=== PATIENT | female | born 1970 | race African-American/Black ===

== ENCOUNTER 2025-08-30 07:57 | Outpatient (AMB) | payer MEDICARE, MEDICAID, SELFPAY ==
--- NOTE | 2025-08-30 07:59 | A.OFFPC_ITS ---
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 Accompanied by: Self / Same As Patient Allergies No Known Allergies Allergy (Verified 08/30/25 08:04) Medication List - Last Reconciled 08/30/25 by Clair Wilson MD apixaban (Eliquis) 2.5 mg PO BID atorvastatin 20 mg PO DAILY bupropion HCl SR 200 mg PO QAM hydroxyzine HCl 10 mg PO BID PRN multivitamin 1 tab PO DAILY prazosin 1 mg PO BEDTIME rizatriptan mg PO Tobacco use date assessed: 08/30/25 Dental Screening Dental Screen Date: 08/30/25 Did you have a dental visit in the last 12 months?: No Did you have a dental problem in the last 6 months where you did not have access to dental care?: No HPI HPI Comments History of Present Illness Details The patient is a 55-year-old female presenting to [facility] and to evaluate new complaints of left-sided back/hip pain and right hand weakness. Obstructive Sleep Apnea: The patient is using a new CPAP machine for sleep apnea and reports compliance. Since using the machine, she has experienced significantly more energy and fewer headaches. She notes feeling a difference on days she is unable to use the device. Her previous provider did not refer her to a sleep clinic after a visit to document compliance. Left Low Back Pain with Sciatica: The patient reports constant, daily pain on her left side for an unspecified but prolonged duration. The pain is located in the left lower back and buttock area, radiating down the leg. She sometimes feels a sharp, burning sensation down the left leg. She uses a heating pad every night for relief. Right Hand Pain and Weakness: The patient complains of difficulty making a full fist with her right hand, which is her dominant hand. This is associated with stiffness, which is worse upon waking in the morning and takes a while to loosen up, sometimes with the help of hot water. She was told she would likely develop arthritis after a hand surgery several years ago. Recurrent Pulmonary Embolism: The patient has a history of recurrent pulmonary embolism and is on Eliquis 2.5 mg twice a day. Mental Health History: The patient takes bupropion for depression, and the dose was previously reduced from 450 mg to 200 mg as the higher dose was too much for her. She takes hydroxyzine 10 mg as needed for anxiety and prazosin 1 mg at night for PTSD and sleep. Migraine: The patient has a history of migraines and is prescribed rizatriptan. She reports not having to use the medication as much recently. She has an upcoming appointment with [facility] neurology. Impaired fasting glucose- due for repeat a1c Anemia- due for iron studies Medical History: - Obstructive sleep apnea, managed with CPAP - Recurrent pulmonary embolism, on chron ic anticoagulation - Hyperlipidemia - Depression - Anxiety - Post-traumatic stress disorder (PTSD) - Migraines - Arthritis Medications: - Eliquis (apixaban) 2.5 mg twice a day for recurrent PE - Atorvastatin 20 mg for hyperlipidemia - Bupropion 200 mg for depression - Hydroxyzine 10 mg twice a day as neede d for anxiety - Prazosin 1 mg at night for PTSD and sl eep - Rizatriptan for migraines, used as nee ded - Multivitamin Social History: - Housing: Recently moved - Family Status: Reports her grandson elie long lives eight minutes away. - Functional Status: Reports having more energy since starting CPAP therapy. [facility] Medical History (Updated 08/30/25 @ 12:23 by Clair Wilson MD) Vitamin D deficiency Right hand pain Lower back pain Left hip pain Impaired fasting glucose Hyperlipidemia, unspecified Iron deficiency anemia Migraines MARI (obstructive sleep apnea) Depression with anxiety Pulmonary embolism Surgical History (Updated 08/30/25 @ 07:50 by Clair Wilson MD) H/O hand surgery History of colonoscopy (~04/07/24) Family History (Updated 08/30/25 @ 07:53 by Clair Wilson MD) Other Diabetes mellitus Primary hypertension Social History Housing: Apartment Patient Tobacco Use Status: Never used Tobacco e-Cigarette/Vaping Use: Never Used service: No Current occupational status: disabled Questionnaire PHQ-9 Over the last 2 weeks, how often have you been bothered by any of the following problems? 1. Little interest or pleasure in doing things: not at all 2. Feeling down, depressed, or hopeless: not at all 3. Trouble falling or staying asleep, or sleeping too much: not at all 4. Feeling tired or having little energy: several days 5. Poor appetite or overeating: several days 6. Feeling bad about yourself - or that you are a failure or have let yourself or your family down: not at all 7. Trouble concentrating on things, such as reading the newspaper or watching television: several days 8. Moving or speaking so slowly that other people could have noticed. Or the opposite - being so fidgety or restless that you have been moving around a lot more than usual: not at all 9. Thoughts that you would be better off or of hurting yourself in some way: not at all Total score: 3 Depression Screening Interpretation: Negative Depression Screening Done: Yes 14689 - PHQ-9 Billing: Yes Source: Developed by Drs. Dago Wheeler, Michelle Archuleta, Darius Lucas and colleagues, with an educational earl from [employer]. AUDIT C Alcohol Use Questionnaire (AUDIT-C) 1. How often do you have a drink containing alcohol?: Monthly or less 2. How many drinks containing alcohol do you have on a typical day when you are drinking?: 1 or 2 3. How often do you have six or more drinks on one occasion?: Never Total Score: 1 Review of Systems Narrative Review of Systems - General: Reports improved energy levels. - Neurological: Reports headaches have improved and are less frequent. - Musculoskeletal: Reports constant, daily pain on the left side, starting from the lower back/buttock area and radiating down the leg, sometimes with a sharp, burning quality. - Musculoskeletal: Reports difficulty making a full fist with the right hand, with associated morning stiffness that improves with time and warm water. Physical exam (Primary Care) Vital Signs: Last Vital Signs Temp 96.9 F 08/30/25 08:02 Pulse 69 08/30/25 08:02 Resp 16 08/30/25 08:02 BP 102/62 08/30/25 08:02 Pulse Ox 96 08/30/25 08:02 Oxygen Delivery Method Room Air 08/30/25 08:02 BMI result Body Mass Index 31.2 Tobacco/Smoking Status: Tobacco use Status Tobacco use date assessed 08/30/25 08/30/25 08:08 Patient Tobacco Use Status Never used Tobacco 08/30/25 08:08 e-Cigarette/Vaping Use Never Used 08/30/25 08:08 PHQ-9: PHQ-9 Score PHQ-9: Total score 3 08/30/25 12:23 Depression Screening Interpretation: Negative Narrative Physical Exam - Cardiovascular: Regular rate and rhythm. A soft murmur was auscultated - Respiratory: Lungs are clear to auscultation bilaterally. - Abdomen: Soft, non-tender to palpation, +BS - Extremities: No swelling in the legs. - Musculoskeletal: Tenderness to palpation over the left paraspinal muscles. 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 Crepitus noted in both knees Coding Level of Care Code Est Pt Level 4 (83694) Complex EM visit Add On G2211 Diagnoses MARI (obstructive sleep apnea) G47.33 Hyperlipidemia, unspecified hyperlipidemia type E78.5 Hyperlipidemia type: unspecified Left hip pain M25.552 Right hand pain M79.641 Migraine without aura and without status migrainosus, not intractable G43.009 Intractability: not intractable Migraine type: without aura Status migrainosus presence: without status migrainosus Impaired fasting glucose R73.01 Iron deficiency anemia, unspecified iron deficiency anemia type D50.9 Iron deficiency anemia type: unspecified iron deficiency Vitamin D deficiency E55.9 Additional Codes PHQ-9 - 26749 - PHQ-9 Billing: Yes ([id number]) Assessment & Plan Assessment & Plan (1) MARI (obstructive sleep apnea): Code(s): G47.33 - Obstructive sleep apnea (adult) (pediatric) Category: Medical (2) Hyperlipidemia, unspecified: Code(s): E78.5 - Hyperlipidemia, unspecified Category: Medical Qualifiers: Hyperlipidemia type: unspecified Qualified Code(s): E78.5 - Hyperlipidemia, unspecified (3) Left hip pain: Code(s): M25.552 - Pain in left hip Category: Medical (4) Right hand pain: Code(s): M79.641 - Pain in right hand Category: Medical (5) Migraines: Code(s): G43.909 - Migraine, unspecified, not intractable, without status migrainosus Category: Medical Qualifiers: Intractability: not intractable Migraine type: without aura Status migrainosus presence: without status migrainosus Qualified Code(s): G43.009 - Migraine without aura, not intractable, without status migrainosus (6) Impaired fasting glucose: Code(s): R73.01 - Impaired fasting glucose Category: Medical (7) Iron deficiency anemia: Code(s): D50.9 - Iron deficiency anemia, unspecified Category: Medical Qualifiers: Iron deficiency anemia type: unspecified iron deficiency Qualified Code(s): D50.9 - Iron deficiency anemia, unspecified (8) Vitamin D deficiency: Code(s): E55.9 - Vitamin D deficiency, unspecified Category: Medical Plan Assessment and Plan 1. Left Low Back Pain with Sciatica - The patient presents with chronic, daily left-sided back pain radiating down the buttock and leg, sometimes with sharp, burning qualities, suspicious for lumbar stenosis or radiculopathy. - Plan includes ordering x-rays of the lower back and left hip for initial evalu ation. - Depending on the results, a referral to physical medicine or orthopedics will be considered. 2. Right Hand Pain and Weakness - The patient complains of right hand stiffness, particularly in the morning, and an inability to make a full fist, suggestive of arthritis or tendonitis. - A right hand x-ray will be ordered. - Blood work will be drawn to check for inflammatory markers to screen for conditions like rheumatoid arthritis. - Based on the results, a referral will be made to either a hand specialist or rheumatology. 3. Obstructive Sleep Apnea - The patient is compliant with her CPAP machine and experiencing symptomatic improvement with increased energy and fewer headaches. - A referral will be placed to a sleep clinic to ensure proper data monitoring and establish annual follow-up care. 4. Recurrent Pulmonary Embolism - The patient will continue Eliquis 2.5 mg twice a day. - 5. Upcoming Dental Procedure - The patient has an upcoming dental cleaning and will bring in paperwork from the dentist so that instructions can be provided regarding stopping her Eliquis, 7. Follow-up - The patient's next annual wellness visit is due in January 2026 Plan - Will order x-rays of the lumbosacral spine, left hip, and right hand. - Will order labs today, including diabetes screening, liver and kidney function tests, and inflammatory markers for joint pain. - Will place a referral to the sleep clinic for management of CPAP data and annual follow-up. - Depending on imaging and lab results, will consider referral to orthopedics, physical medicine, hand specialty, or rheumatology. - Patient will continue her current medications, including Eliquis, atorvastatin, bupropion, prazosin, and as-needed hydroxyzine and rizatriptan. Discussion Notes I discussed with the patient her new complaints of left-sided back pain with radiation and right hand stiffness and weakness. I explained that we would start a workup today with x-rays of her lower back, left hip, and right hand to assess the joints and bones. I also explained that I would order blood work to check for general health markers and signs of inflammation, such as rheumatoid arthritis, which could be causing her hand symptoms. We discussed that depending on the results, I would refer her to the appropriate specialist, such as orthopedics, physical medicine, a hand specialist, or rheumatology. We also discussed her sleep apnea, and I informed her that I will refer her to our sleep clinic for ongoing management and to ensure her CPAP data is being monitored. We reviewed her need for dental clearance due to her use of Eliquis, and I instructed her to bring the paperwork from her dentist so I can provide specific instructions on when to stop the medication. Patient Instructions - Please go to the lab in this building to have your blood drawn today. - Please go to the x-ray department today for pictures of your lower back, left hip, and right hand. - Our office will refer you to the sleep clinic for your sleep apnea. You will need to bring your CPAP machine to that appointment. - Continue taking all your current medications as prescribed. Orders: Orders Hemoglobin A1c Today D50.9 - Iron deficiency anemia, unspecified, E55.9 - Vitamin D deficiency, unspecified, E78.5 - Hyperlipidemia, unspecified, R73.01 - Impaired fasting glucose Comprehensive Met. Panel Today D50.9 - Iron deficiency anemia, unspecified, E55.9 - Vitamin D deficiency, unspecified, E78.5 - Hyperlipidemia, unspecified, R73.01 - Impaired fasting glucose Complete Blood Count Auto Diff Today D50.9 - Iron deficiency anemia, unspecified, E55.9 - Vitamin D deficiency, unspecified, E78.5 - Hyperlipidemia, unspecified, R73.01 - Impaired fasting glucose Ferritin Today D50.9 - Iron deficiency anemia, unspecified, E55.9 - Vitamin D deficiency, unspecified, E78.5 - Hyperlipidemia, unspecified, R73.01 - Impaired fasting glucose IRON PROFILE Today D50.9 - Iron deficiency anemia, unspecified, E55.9 - Vitamin D deficiency, unspecified, E78.5 - Hyperlipidemia, unspecified, R73.01 - Impaired fasting glucose Vitamin B12 Today D50.9 - Iron deficiency anemia, unspecified, E55.9 - Vitamin D deficiency, unspecified, E78.5 - Hyperlipidemia, unspecified, R73.01 - Impaired fasting glucose TSH reflex Free T4 Today D50.9 - Iron deficiency anemia, unspecified, E55.9 - Vitamin D deficiency, unspecified, E78.5 - Hyperlipidemia, unspecified, R73.01 - Impaired fasting glucose Lipid Panel Today D50.9 - Iron deficiency anemia, unspecified, E55.9 - Vitamin D deficiency, unspecified, E78.5 - Hyperlipidemia, unspecified, R73.01 - Impaired fasting glucose Rheumatoid Factor Today M79.641 - Pain in right hand Erythrocyte Sedimentation Rate Today M25.552 - Pain in left hip, M54.50 - Low back pain, unspecified, M79.641 - Pain in right hand C Reactive Protein Today M25.552 - Pain in left hip, M54.50 - Low back pain, unspecified, M79.641 - Pain in right hand XR lumbar spine 2-3V Today M54.50 - Low back pain, unspecified XR hand RT min 3V Today M79.641 - Pain in right hand XR hip LT min 2V Today M25.552 - Pain in left hip, M54.50 - Low back pain, unspecified Vitamin D 25-OH Total Today D50.9 - Iron deficiency anemia, unspecified, E55.9 - Vitamin D deficiency, unspecified, E78.5 - Hyperlipidemia, unspecified, R73.01 - Impaired fasting glucose Cyclic Citrullinated Peptide Today M79.641 - Pain in right hand Referrals Sleep Medicine Referral G43.909 - Migraine, unspecified, not intractable, without status migrainosus, G47.33 - Obstructive sleep apnea (adult) (pediatric)
[2025-08-30 08:02] VITALS: BP 102/62; PULSE 69; RESP 16; TEMP 36.1; O2SAT 96; BMI 31.2
== END 2025-08-30 08:50 | disposition home or self-care (01) ==
LOC: HO.HMCHD 07:57
PROVIDERS: PCP Internal Medicine; Visit Provider Internal Medicine
DX: G47.33 Obstructive sleep apnea (adult) (pediatric) (principal); E78.5 Hyperlipidemia, unspecified; M25.552 Pain in left hip; M79.641 Pain in right hand; G43.009 Migraine without aura, not intractable, without status migrainosus; R73.01 Impaired fasting glucose; D50.9 Iron deficiency anemia, unspecified; E55.9 Vitamin D deficiency, unspecified

== ENCOUNTER 2025-08-30 07:57 | Outpatient (REF) | payer MEDICARE, MEDICAID, SELFPAY ==
--- NOTE | ~2025-08-30 | XR_ITS ---
EXAMINATION: XR HAND, RIGHT CLINICAL INFORMATION: M79.641 - Pain in right hand COMPARISON: None available. TECHNIQUE: PA, lateral, and oblique views of the right hand. FINDINGS: No acute cortical disruption or malalignment. No lytic or blastic lesions. No metallic or radiopaque foreign body. No subcutaneous emphysema. No gross soft tissue calcifications. XR/XR hand RT min 3V IMPRESSION: No acute fracture or dislocation. Negative x-ray, right hand. Electronically signed by: Juventino Mitchell MD 08/30/2025 10:17 AM [facility] BUSTILLOS
--- NOTE | ~2025-08-30 | XR_ITS ---
EXAMINATION: XR HIP, LEFT CLINICAL INFORMATION: M25.552 - Pain in left hip COMPARISON: None available. TECHNIQUE: AP and oblique views of the left hip. FINDINGS: No acute cortical disruption or malalignment. Asymmetric joint space narrowing. Mild sclerosis along the articular surface of the left acetabulum. 1 cm sclerotic marginated lytic lesion in the femoral head near the articular surface. XR/XR hip LT min 2V IMPRESSION: Geode, left femoral head. Electronically signed by: Juventino Mitchell MD 08/30/2025 10:14 AM [facility] BUSTILLOS
--- NOTE | ~2025-08-30 | XR_ITS ---
EXAMINATION: XR LUMBOSACRAL SPINE CLINICAL INFORMATION: M54.50 - Low back pain, unspecified COMPARISON: None available. TECHNIQUE: AP and lateral views FINDINGS: Endplate sclerosis decreased intervertebral disc height and vacuum phenomenon at L5-S1. Bilateral facet joint hypertrophy at L5-S1. No acute cortical disruption or malalignment. No lytic or blastic lesions. XR/XR lumbar spine 2-3V IMPRESSION: Spondylosis L5-S1, moderate to severe. Electronically signed by: Juventino Mitchell MD 08/30/2025 10:12 AM [facility]USTILLOS
== END 2025-08-30 07:58 | disposition home or self-care (01) ==
LOC: HO.XRAY 07:57
PROVIDERS: PCP Internal Medicine; Visit Provider Internal Medicine
DX: Z13.89 Encounter for screening for other disorder (principal)
CPT/HCPCS: 72100; 73130; 73502

== ENCOUNTER 2025-08-30 08:51 | Outpatient (REF) | payer MEDICARE, MEDICAID, SELFPAY ==
[2025-08-30 10:53] LABS: MANUAL DIFF FLAG NO
[2025-08-30 11:03] LABS: Hematocrit 39.0 % (37.0-47.0); Hemoglobin 12.2 g/dl (12.0-16.0); Imm Gran Abs Auto 0.01 X10*3/uL (0.00-0.03); Imm Gran Pct Auto 0.1 % (0.0-0.4); Lymphocytes Absolute Auto 2.6 X10*3/uL (1.2-4.9); Mean Corpuscular HGB Conc 31.3 g/dl (31.0-35.0); Mean Corpuscular Hemoglobin 26.2 pg (27.0-33.0); Mean Corpuscular Volume 83.7 fL (80.0-98.0); NRBC Abs Auto 0.000 X10*3/uL (0.0-0.012); NRBC Pct Auto 0.0 /100WBC (0.0-0.2); Platelet Count 258 X10*3/uL (160-400); Red Blood Count 4.66 X10*6/uL (4.20-5.50); White Blood Count 7.4 X10*3/uL (4.8-10.8)
[2025-08-30 11:26] LABS: Alanine Aminotransferase 73 U/L (0-31); Albumin Level 4.7 g/dL (3.5-5.0); Anion Gap 11 (12-20); Aspartate Amino Transferase 51 U/L (5-31); Blood Urea Nitrogen 14 mg/dL (9-16); Calcium 10.1 mg/dL (8.4-10.2); Carbon Dioxide 30 mmol/L (22-29); Chloride 102 mmol/L (96-108); Cholesterol 185 mg/dL (<200); Estimated Glomerular Filt Rate > 60; HDL Cholesterol 58 mg/dL (>40); Iron 99 mcg/dL (30-160); Percent Iron Saturation 37 % (15-50); Potassium 3.9 mmol/L (3.3-5.1); Sodium 139 mmol/L (135-145); Total Iron Binding Capacity 267 mcg/dL (228-428); Total Protein 8.0 g/dL (6.5-8.0); Triglycerides 153 mg/dL (<150); Unsaturated Iron Binding 168 ug/dL
[2025-08-30 11:27] LABS: Alkaline Phosphatase 105 U/L (39-117)
[2025-08-30 11:40] LABS: Vitamin B12 497 pg/mL (200-900)
[2025-08-30 11:47] LABS: Ferritin 219 ng/mL (10-250)
== END 2025-08-30 08:52 | disposition home or self-care (01) ==
LOC: HO.10HDL 08:51
PROVIDERS: Visit Provider Internal Medicine
DX: R73.01 Impaired fasting glucose (principal); M79.641 Pain in right hand; M25.552 Pain in left hip; E78.5 Hyperlipidemia, unspecified; D50.9 Iron deficiency anemia, unspecified; E55.9 Vitamin D deficiency, unspecified; M54.50 Low back pain, unspecified
CPT/HCPCS: 36415; 72100; 73130; 73502; 80053; 80061; 82306; 82607; 82728; 83036; 83540; 84443; 85025; 85652; 86140; 86200; 86431; 96127; 99212

== ENCOUNTER → 2025-08-30 09:07 | Outpatient (BNV) | payer MEDICARE, MEDICAID, SELFPAY | PROVIDERS: PCP Internal Medicine; Visit Provider Radiology Diagnostic Radiology | DX: M85.862 Other specified disorders of bone density and structure, left lower leg (principal); M47.817 Spondylosis without myelopathy or radiculopathy, lumbosacral region; M79.641 Pain in right hand | CPT/HCPCS: 72100; 73130; 73502 ==

== ENCOUNTER 2025-09-24 08:52 | Outpatient (AMB) | payer MEDICARE, MEDICAID, SELFPAY ==
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
[2025-09-24 08:55] VITALS: BP 114/68; PULSE 80; RESP 16; O2SAT 91; BMI 29.8
== END 2025-09-24 09:25 | disposition home or self-care (01) ==
LOC: HO.PMC 08:52
PROVIDERS: PCP Internal Medicine; Visit Provider Registered Nurse Emergency
DX: M47.816 Spondylosis without myelopathy or radiculopathy, lumbar region (principal); M53.3 Sacrococcygeal disorders, not elsewhere classified
CPT/HCPCS: 99204; G2211

== ENCOUNTER → 2025-09-24 08:52 | Outpatient (BNVA) | payer MEDICARE, MEDICAID, SELFPAY | PROVIDERS: PCP Internal Medicine; Visit Provider Registered Nurse Emergency | DX: M47.816 Spondylosis without myelopathy or radiculopathy, lumbar region (principal); M53.3 Sacrococcygeal disorders, not elsewhere classified | CPT/HCPCS: 99202 ==

== ENCOUNTER 2025-10-04 13:31 | Outpatient (AMB) | payer MEDICARE, MEDICAID, SELFPAY ==
[2025-10-04 13:33] VITALS: BP 112/80; PULSE 81; O2SAT 98; BMI 29.8
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
--- OUTSIDE RECORDS SUMMARY | 2025-10-04 16:56 | XMS_ITS | Patient Health Record ---
Author Organization [employer] [facility] Address [address] [place] [address] Care Team Providers Care Vessel Engineer Name Role Phone BOYD ASHTON Primary Care Provider Marlin Mauro Unavailable [phone] Allergies No Known Allergies Reason For Referral No Information Medications Medication SIG (Take, Route, Frequency, Duration) Notes Start Date End Date Status Iron (Ferrous Sulfate) 325 MG 1 tablet Orally Once a day Active Eliquis 5 MG 1 tablet Orally Twic e a day Active Rizatriptan Benzoate 5 MG Oral; Duration: 9 Active buPROPion HCl ER (XL) 300 MG TAKE 1 TABLET BY MOUTH EVERY DAY (WITH 150 MG TABLET FOR A TOTAL DAILY DOSE OF 450 MG) Oral; Duration: 90 Active Lysteda 650 MG 2 TABS Orally THRICE A DAY DURING MENSES; Duration: 5 day(s) 06/16/2021 Not-Taking Aygestin 5 MG 1 tablet Orally suman y; Duration: 10 days 06/16/2021 Not-Taking Social History Alcohol Screen (Audit-C) Question Answer Notes Did you have a drink containing alcohol in the p ast year? No Points 0 Interpretation Negative Sexual History Question Answer Notes Had sex in the past 12 months (vaginal, oral, or anal)? No Problems Problem Type SNOMED Code ICD Code Onset Dates Problem Status W/U Status Risk Notes Problem Abdominal (70420656) Abdominal (633.0) Active confirmed Problem Excessive and frequent menstruation (400276687) Excessive and frequent menstruation with regular cycle (N92.0) Active confirmed Problem Gynecological examination normal (307847098453411) Encounter for gynecological examination (general) (routine) without abnormal findings (Z01.419) Active confirmed Problem Migraine without aura, not refractory (disorder) (872311381) Migraine, unspecified, not intractable, without status migrainosus (G43.909) Active confirmed Problem Unspecified menopausal and perimenopausal disorder (N95.9) Active confirmed Problem History of dysplasia of cervix (793265740) Personal history of cervical dysplasia (Z87.410) Active confirmed Problem Menopause (373387053) Menopausal and female climacteric states (N95.1) Active confirmed Problem Moderate dysplasia of cervix (498291486) Moderate dysplasia of cervix (622.12) Active confirmed Diag Problem Gynecological examination normal (663229646776675) Routine gynecological examination (V72.31) Active confirmed Plan Of Treatment Pending Test Test Name Order Date Pap IG, Ct, rfx HPV all pth 12/21/2014 MAMMOGRAM, SCREENING 12/21/2014 [facility] Digital Mammo Screening 06/05/2021 MM Digital Mammo Screening 06/06/2022 MM Digital Mammo Screening 09/12/2023 ULTRASOUND: PELVIC W/TRANSVAGINAL 2022 Next Appt Details Provider Name:Marlin Rogers ashleylauraelda, 10/15/2025 09:30:00 AM, [address] [place] [address], [address], [place], [address], Insurance Providers Payer Name Payer Address Payer Phone Subscriber Number Group Number Insured Name Patient Relationship to Insured Coverage Start Date Coverage End Date MEDICARE [address] [place] [id number] CLINTON GONZALEZ Self - patient is the insured Medical (General) History Medical History History ICD Code Moderate cervical dysplasia N87.1 Abdominal 633.0 Excessive and frequent menstruation with regular cycle N92.0 Personal history of cervical dysplasia Z 87.410 Inconclusive mammogram R92.2 Leiomyoma of uterus, unspecified D25.9 Migraine, unspecified, not intractable, without status migrainosus G43.909 Menopausal and female climacteric states N95.1 Unspecified menopausal and perimenopausa l disorder N95.9 Anemia, unspecified D64.9 Surgical History Surgery Date(Month/Year) Leep Colonoscopy Hospitalization History Reason Date(Month/Year) 2 Vaginal Deliveries
== END 2025-10-04 14:33 | disposition home or self-care (01) ==
LOC: HO.HSMS 13:31
PROVIDERS: PCP Internal Medicine; Visit Provider Physician Assistant Medical
DX: G25.81 Restless legs syndrome (principal); G47.33 Obstructive sleep apnea (adult) (pediatric); R51.9 Headache, unspecified; G89.29 Other chronic pain
CPT/HCPCS: 99204

== ENCOUNTER → 2025-10-04 13:31 | Outpatient (BNVA) | payer MEDICARE, MEDICAID, SELFPAY | PROVIDERS: PCP Internal Medicine; Visit Provider Physician Assistant Medical | DX: G47.33 Obstructive sleep apnea (adult) (pediatric) (principal); Z99.89 Dependence on other enabling machines and devices; G25.81 Restless legs syndrome; R51.9 Headache, unspecified; G89.29 Other chronic pain | CPT/HCPCS: 99202 ==